=== PATIENT | female | born 1935 | race Caucasian/White ===

== ENCOUNTER 2017-12-13 09:41 | Outpatient (CLI) | payer OTHER | END 2017-12-13 09:44 | disposition home or self-care (01) | LOC: LAB 09:41 | DX: N18.3 Chronic kidney disease, stage 3 (moderate) (principal); E11.65 Type 2 diabetes mellitus with hyperglycemia ==

== ENCOUNTER 2018-12-07 09:31 | Outpatient (CLI) | payer OTHER | END 2018-12-07 09:38 | disposition home or self-care (01) | LOC: MAMO-SONO 09:31 | DX: Z12.31 Encounter for screening mammogram for malignant neoplasm of breast (principal); Z87.898 Personal history of other specified conditions; N64.89 Other specified disorders of breast ==

== ENCOUNTER → 2019-01-14 | Outpatient (CLI) | payer OTHER | END | disposition home or self-care (01) | LOC: NUCLEAR 11:00 | DX: M81.0 Age-related osteoporosis without current pathological fracture (principal) ==

== ENCOUNTER 2019-02-06 10:19 | Outpatient (CLI) | payer OTHER | END 2019-02-06 10:25 | disposition home or self-care (01) | LOC: RAD 10:19 | DX: M54.2 Cervicalgia (principal) ==

== ENCOUNTER 2022-11-09 08:58 | Outpatient (CLI) | payer OTHER | END 2022-11-09 08:59 | disposition home or self-care (01) | LOC: LAB 08:58 | PROVIDERS: ATTEND Internal Medicine Cardiovascular Disease | DX: D64.9 Anemia, unspecified (principal); N39.0 Urinary tract infection, site not specified; R10.9 Unspecified abdominal pain; E03.9 Hypothyroidism, unspecified; E78.5 Hyperlipidemia, unspecified; R07.9 Chest pain, unspecified; E55.9 Vitamin D deficiency, unspecified; R80.9 Proteinuria, unspecified; E11.9 Type 2 diabetes mellitus without complications ==

== ENCOUNTER 2022-12-16 10:40 | Outpatient (CLI) | payer OTHER | END 2022-12-16 10:46 | disposition home or self-care (01) | LOC: MRI 10:40 | PROVIDERS: ATTEND General Practice | DX: M54.2 Cervicalgia (principal) | CPT/HCPCS: 72141 ==

== ENCOUNTER 2024-08-20 08:21 | Outpatient (CLI) | payer OTHER | END 2024-08-20 08:25 | disposition home or self-care (01) | LOC: RAD 08:21 | PROVIDERS: ATTEND General Practice | DX: M25.561 Pain in right knee (principal) ==

== ENCOUNTER 2024-08-28 08:46 | Outpatient (CLI) | payer OTHER | END 2024-08-28 08:47 | disposition home or self-care (01) | LOC: NUCLEAR 08:46 | PROVIDERS: ATTEND General Practice | DX: I73.9 Peripheral vascular disease, unspecified (principal); I87.2 Venous insufficiency (chronic) (peripheral) ==

== ENCOUNTER 2025-01-21 09:36 | Outpatient (CLI) | payer OTHER | END 2025-01-21 09:38 | disposition home or self-care (01) | LOC: RAD 09:36 | PROVIDERS: ATTEND General Practice | DX: M54.50 Low back pain, unspecified (principal); M54.51 Vertebrogenic low back pain; M54.2 Cervicalgia ==